=== PATIENT | female | born 1945 | race African-American/Black ===

== ENCOUNTER 2017-06-12 08:56 | Day surgery (SDC) | payer MEDICARE, BC ==
[~2017-06-12] VITALS: Ht 162.6 cm; Wt 161.0 kg
[2017-06-12] VITALS (8 sets, daily range): BP systolic 131–170; BP diastolic 66–92
--- NOTE | 2017-06-12 07:41 | Pre-Procedure Note/Attestation ---
Pre-Procedure Note/Attestation Complete Prior to Procedure Planned Procedure: left Procedure Narrative: cataract extraction with implant left eye Indications for Procedure Pre-Operative Diagnosis: cataract left eye Attestation I attest that I discussed the nature of the procedure; its benefits; risks and complications; and alternatives (and the risks and benefits of such alternatives ), prior to the procedure, with the patient (or the patient's legal credit and collections representative). I attest that, if there was a reasonable possibility of needing a blood transfusion, the patient (or the patient's legal credit and collections representative) was given the [facility] standardized written summary, pursuant to the Vikash Becky Blood Safety Act ([place] Health and Safety Code # 1645, as amended). I attest that I re-evaluated the patient just prior to the surgery and that there has been no change in the patient's H&P, except as documented below: LIBRADO MCGREGOR Jun 12, 2017 07:41
[2017-06-12] MEDS ORDERED: Akten 3.5% 1ml Btl ONE (09:05)
[2017-06-12] MEDS ORDERED: Phenylephrine 2.5% Op 2ml Soln ONE (09:06)
[2017-06-12] MEDS ORDERED: Tropicamide 1% Opth 15ml Soln ONE (09:06)
[2017-06-12] MEDS ORDERED: Flurbiprofen 0.03% Opth Sol 2.5ml ONE (09:06)
[2017-06-12] MEDS ORDERED: Vigamox Opth Soln 3ml ONE (09:06)
[2017-06-12] MEDS ORDERED: Tobradex Opth Susp 2.5ml ONE (09:06)
[2017-06-12] MEDS: Flurbiprofen 0.03% Opth Sol 2.5ml LEFT EYE SCH ×3 (09:45→10:04)
[2017-06-12] MEDS: Vigamox Opth Soln 3ml LEFT EYE SCH ×3 (09:46→10:04)
[2017-06-12] MEDS: Akten 3.5% 1ml Btl LEFT EYE SCH ×3 (09:46→10:05)
[2017-06-12] MEDS: Phenylephrine 2.5% Op 2ml Soln LEFT EYE SCH ×3 (09:46→10:05)
[2017-06-12] MEDS: Tobradex Opth Susp 2.5ml LEFT EYE SCH ×3 (09:46→10:04)
[2017-06-12] MEDS: Tropicamide 1% Opth 15ml Soln LEFT EYE SCH ×3 (09:46→10:04)
[2017-06-12] MEDS ORDERED: fentaNYL 100 mcg/2 mL IV ONE (10:00)
[2017-06-12] MEDS ORDERED: LR 1000ml ONE (10:00)
[2017-06-12] MEDS ORDERED: Midazolam 2mg/2ml Inj ONE (10:00)
[2017-06-12] MEDS ORDERED: METFORMIN HCL500 M1 ORAL (10:01)
[2017-06-12] MEDS ORDERED: METOPROLOL SUCC50 MG ORAL (10:01)
[2017-06-12] MEDS ORDERED: GABAPENTIN300 MG ORAL (10:01)
[2017-06-12] MEDS ORDERED: CELEXA20 MG ORAL (10:01)
--- NOTE | 2017-06-12 10:53 | Anethesia Preoperative Eval ---
Anesthesia Pre-op PMH/ROS General Date of Evaluation: Jun 12, 2017 Time of Evaluation: 10:10 Anesthesiologist: Samreen ASA Score: ASA 3 Mallampati Score Class I : Soft palate, uvula, fauces, pillars visible Class II: Soft palate, uvula, fauces visible Class III: Soft palate, base of uvula visible Class IV: Only hard plate visible Mallampati Classification: Class III Surgeon: kris Diagnosis: left eye cataract Surgical Procedure: left eye cataract removal with implant Anesthesia History: none Family History: no anesthesia problems Allergies: Coded Allergies: BENAZEPRIL (Verified Allergy, Unknown, 06/11/17) CLONIDINE (Verified Allergy, Unknown, 06/11/17) Medications: see eMAR Past Medical History Cardiovascular: Reports: HTN, CAD Pulmonary: Denies: asthma, COPD, MARIA ANTONIA, other Gastrointestinal/Genitourinary: Denies: GERD, CRI, ESRD, other Neurologic/Psychiatric: Reports: depression/anxiety Endocrine: Reports: DM, hypothyroidism HEENT: Reports: cataract (L) Hematology/Immune: Reports: other - left breast CA hx - surgery done Musculoskeletal/Integumentary: Reports: OA, DJD Other: obesity Anesthesia Pre-op Phys. Exam Physician Exam Last Vital Signs Date Time Temp Pulse Resp B/P (MAP) Pulse Ox O2 Delivery O2 Flow Rate FiO2 06/12/17 10:06 97.8 72 18 159/92 97 Room Air Constitutional: NAD Neurologic: CN 2-12 intact Cardiovascular: RRR Respiratory: CTA Gastrointestinal: S/NT/ND Airway Exam Mallampati Score: Class III MO: full ROM: full Teeth: missing Dentures: no upper, no lower Anesthesia Pre-op A/P Labs reviewed chart Studies Pre-op Studies: EKG - NSR Risk Assessment & Plan Assessment: AxOx3 Plan: MAC Status Change Before Surgery: No Pre-Antibiotics Given Within 1 Hr of Incision: No Ashlie Jolley CRNA Jun 12, 2017 10:53
--- NOTE | 2017-06-12 10:54 | 48 Hour Post Anesthesia Eval ---
Post Anesthesia Evaluation Procedure: left eye cataract removal with implant Date of Evaluation: Jun 12, 2017 Time of Evaluation: 11:54 Blood Pressure Systolic: 140 0: 65 Pulse Rate: 70 Respiratory Rate: 18 Temperature (Fahrenheit): 97.8 O2 Sat by Pulse Oximetry: 100 Airway: patent Nausea: No Vomiting: No Pain Intensity: 0 Hydration Status: adequate Mental Status/LOC: patient returned to baseline Follow-up care needed: patient intructions given Ashlie Jolley CRNA Jun 12, 2017 10:54
--- NOTE | 2017-06-12 10:54 | Immediate Post-Op Evaluation ---
Immediate Post-Op Evalulation Immediate Post-Op Evalulation Procedure: left eye cataract removal with implant Date of Evaluation: Jun 12, 2017 Time of Evaluation: 11:05 IV Fluids: LR 350 ml Blood Products: 0 Estimated Blood Loss: less than 2 ml Urinary Output: 0 Blood Pressure Systolic: 145 Blood Pressure Diastolic: 66 Pulse Rate: 71 Respiratory Rate: 20 O2 Sat by Pulse Oximetry: 99 Temperature (Fahrenheit): 97.8 Pain Score (1-10): 0 Nausea: No Vomiting: No Patient Status: awake, reacts, patent Hydration Status: adequate Given Within 1 Hr of Incision: Ashlie Poon CRNA Jun 12, 2017 10:54
--- NOTE | 2017-06-12 11:03 | Brief Operative Note ---
Immediate Post Operative Note Operative Note Pre-op Diagnosis: cataract left eye Procedure: phacoemulsification of cataract with implant left eye Post-op Diagnosis: same as pre-op Surgeon: librado ponce Senior Java Programmer Analyst: none Anesthesiologist: isidra flores crna Anesthesia: MAC Specimen: none Complications: none Condition: stable Fluids: none Estimated Blood Loss: minimal Drains: none Implant(s) used?: Yes LIBRADO PONCE Jun 12, 2017 11:03
[2017-06-12] MEDS ORDERED: BSS 500ml btl ONE (12:14)
[2017-06-12] MEDS ORDERED: EPINEPHrine 1mg/1ml Amp ONE (12:15)
[2017-06-12] MEDS ORDERED: Dexamethasone 4mg/ml vial ONE (12:15)
[2017-06-12] MEDS ORDERED: Lidocaine 1% MPF 10mg/ml 5ml ONE (12:15)
[2017-06-12] MEDS ORDERED: Povidone-Iodine 5% opth solution ONE (12:15)
[2017-06-12] MEDS ORDERED: BSS 15ml BTL ONE (12:16)
[2017-06-12] MEDS ORDERED: Sodium Hyaluronate 14 mg/ml 0.85ml ONE (12:16)
--- NOTE | 2017-06-12 15:15 | Operative Note - Dictated ---
DATE OF OPERATION: 06/12/2017 PREOPERATIVE DIAGNOSIS: Cataract, left eye. POSTOPERATIVE DIAGNOSIS: Cataract, left eye. PROCEDURE: Phacoemulsification of cataract left eye with placement of posterior chamber intraocular lens. SURGEON: Mark Lamar M.D. SUPERINTENDENT DISTRIBUTION: None. ANESTHESIA: MAC/topical. PATHOLOGIST: Ashlie Jolley CRNA. INDICATION FOR PROCEDURE: Hand motion vision, left eye. DESCRIPTION OF FINDINGS: A hypermature cataract, left eye. DESCRIPTION OF PROCEDURE: The patient received a topical anesthetic block consisting of 3.5% Akten eye drops. The eye was then prepped and draped in usual manner. A lid speculum was placed. An operating Zeiss microscope was positioned. The temporal corneal groove was made with the alicia blade. A SuperSharp blade made a stab incision at the 6 o'clock position. A 0.1 mL of 1% nonpreserved intracameral lidocaine was injected. Air was instilled into the anterior chamber and Vision Blue dye was used to stain the anterior capsule. The dye was irrigated with BSS. Healon was instilled into the anterior chamber and a 2.5/2.8 mm trapezoidal alicia blade was used to complete the temporal corneal wound. A cystotome was used to create an anterior capsular flap. Utrata forceps were used to complete the capsulorrhexis. BSS on a cannula was used to hydrodissect the nucleus. The lens nucleus was phacoemulsified in a phaco-fracture technique. Remaining cortical material was removed with the I/A and the posterior capsule polished with the I/A on Cap vac. Healon was instilled in a capsular bag and anterior chamber and Aguero foldable one-piece posterior chamber intraocular lens, model ZCB00, power 24.0 diopter, serial #[id number] was placed in the injector. The lens was put in the capsular bag. The I/A tip was used to remove the Healon and position the lens. The wound edge was hydrated with BSS and a blunt-tipped cannula. The wound was checked and found to be watertight. The lid speculum was removed. A drop of TobraDex and Vigamox was placed. A clear plastic shield was taped over the eye. The patient tolerated the procedure well and left the operating room in good condition. Mark Lamar M.D. ([facility] [place]: MOHSEN JOB#: [id number] CC: Toshia Dukes M.D. ([facility] [place] Fax#: [phone] [facility]
== END 2017-06-12 13:10 | disposition home or self-care (01) ==
LOC: SUR 08:56
DX: H25.22 Age-related cataract, morgagnian type, left eye (principal); I10 Essential (primary) hypertension; F32.9 Major depressive disorder, single episode, unspecified; F41.9 Anxiety disorder, unspecified; I25.10 Atherosclerotic heart disease of native coronary artery without angina pectoris; E03.9 Hypothyroidism, unspecified; M19.90 Unspecified osteoarthritis, unspecified site; Z88.8 Allergy status to other drugs, medicaments and biological substances
CPT/HCPCS: 66984; 82962; J0171; J1100; J2250; J3010; J7120; V2632; 94003; 94150

== ENCOUNTER 2017-06-26 06:24 | Day surgery (SDC) | payer MEDICARE, BC ==
[~2017-06-26] VITALS: Ht 162.6 cm; Wt 161.0 kg
[2017-06-26] VITALS (9 sets, daily range): BP systolic 134–164; BP diastolic 59–83
[~2017-06-26 06:24] MED LIST: CELEXA20 MG ORAL; GABAPENTIN300 MG ORAL; METFORMIN HCL500 M1 ORAL; METOPROLOL SUCC50 MG ORAL
[2017-06-26] MEDS ORDERED: Akten 3.5% 1ml Btl ONE ×2 (07:15→07:16)
[2017-06-26] MEDS ORDERED: Phenylephrine 2.5% Op 2ml Soln ONE (07:15)
[2017-06-26] MEDS ORDERED: Flurbiprofen 0.03% Opth Sol 2.5ml ONE (07:15)
[2017-06-26] MEDS ORDERED: Tobradex Opth Susp 2.5ml ONE (07:16)
[2017-06-26] MEDS ORDERED: Tropicamide 1% Opth 15ml Soln ONE (07:16)
[2017-06-26] MEDS: Tropicamide 1% Opth 15ml Soln RIGHT EYE SCH ×3 (07:19→07:39)
[2017-06-26] MEDS: Tobradex Opth Susp 2.5ml RIGHT EYE SCH ×3 (07:19→07:39)
[2017-06-26] MEDS: Akten 3.5% 1ml Btl RIGHT EYE SCH ×3 (07:19→07:39)
[2017-06-26] MEDS: Flurbiprofen 0.03% Opth Sol 2.5ml RIGHT EYE SCH ×3 (07:19→07:39)
[2017-06-26] MEDS: Phenylephrine 2.5% Op 2ml Soln RIGHT EYE SCH ×3 (07:19→07:39)
[2017-06-26] MEDS: Vigamox Opth Soln 3ml RIGHT EYE SCH ×3 (07:21→07:39)
[2017-06-26] MEDS ORDERED: Vigamox Opth Soln 3ml ONE (07:21)
--- NOTE | 2017-06-26 07:39 | Pre-Procedure Note/Attestation ---
Pre-Procedure Note/Attestation Complete Prior to Procedure Planned Procedure: right Procedure Narrative: cataract extraction with implant right eye Indications for Procedure Pre-Operative Diagnosis: cataract right eye Attestation I attest that I discussed the nature of the procedure; its benefits; risks and complications; and alternatives (and the risks and benefits of such alternatives ), prior to the procedure, with the patient (or the patient's legal financial representative). I attest that, if there was a reasonable possibility of needing a blood transfusion, the patient (or the patient's legal financial representative) was given the [facility] standardized written summary, pursuant to the Vikash [place] Blood Safety Act ([place] Health and Safety Code # 1645, as amended). I attest that I re-evaluated the patient just prior to the surgery and that there has been no change in the patient's H&P, except as documented below: LIBRADO MCGREGOR Jun 26, 2017 07:39
[2017-06-26] MEDS ORDERED: NS Irrig 1000ml ONE (08:00)
[2017-06-26] MEDS ORDERED: fentaNYL 100 mcg/2 mL IV ONE (08:00)
[2017-06-26] MEDS ORDERED: Midazolam 2mg/2ml Inj ONE (08:00)
[2017-06-26] MEDS ORDERED: Sterile Water Irrig 1000ml IRRIG ONE (08:00)
[2017-06-26] MEDS ORDERED: LR 1000ml ONE (08:00)
--- NOTE | 2017-06-26 08:53 | Anethesia Preoperative Eval ---
Anesthesia Pre-op PMH/ROS General Date of Evaluation: Jun 26, 2017 Time of Evaluation: 08:11 Anesthesiologist: Samreen ASA Score: ASA 3 Mallampati Score Class I : Soft palate, uvula, fauces, pillars visible Class II: Soft palate, uvula, fauces visible Class III: Soft palate, base of uvula visible Class IV: Only hard plate visible Mallampati Classification: Class III Surgeon: Willard Diagnosis: Right eye cataract Surgical Procedure: Right eye cataract removal w/ IOL Anesthesia History: none Family History: no anesthesia problems Allergies: Coded Allergies: BENAZEPRIL (Verified Allergy, Unknown, 06/11/17) CLONIDINE (Verified Allergy, Unknown, 06/11/17) Past Medical History Cardiovascular: Reports: HTN, CAD, other - high cholosterol Pulmonary: Denies: asthma, COPD, MARIA ANTONIA, other Gastrointestinal/Genitourinary: Denies: GERD, CRI, ESRD, other Neurologic/Psychiatric: Reports: depression/anxiety Endocrine: Reports: DM, hypothyroidism HEENT: Reports: cataract (L), cataract (R) Hematology/Immune: Reports: other - left breast CA - lumpectomy done Musculoskeletal/Integumentary: Reports: OA, DJD Other: obesity Anesthesia Pre-op Phys. Exam Physician Exam Last Vital Signs Date Time Temp Pulse Resp B/P (MAP) Pulse Ox O2 Delivery O2 Flow Rate FiO2 06/26/17 07:33 97.8 75 18 144/69 97 Room Air Constitutional: NAD Neurologic: CN 2-12 intact Cardiovascular: RRR Respiratory: CTA Gastrointestinal: S/NT/ND Airway Exam Mallampati Score: Class III MO: full ROM: full Teeth: intact Dentures: no upper, no lower Anesthesia Pre-op A/P Labs chart reviewed Accucheck 115 Studies Pre-op Studies: EKG - NSR 72 BPM Risk Assessment & Plan Assessment: A&O x 4 Plan: MAC Status Change Before Surgery: No Pre-Antibiotics Given Within 1 Hr of Incision: Ashlie Poon CRNA Jun 26, 2017 08:53
--- NOTE | 2017-06-26 08:55 | Brief Operative Note ---
Immediate Post Operative Note Operative Note Pre-op Diagnosis: cataract right eye Procedure: phacoemulsification of cataract with implant right eye Post-op Diagnosis: same as pre-op Surgeon: librado ponce Environmental Scientist: none Anesthesiologist: isidra flores crna Anesthesia: MAC Specimen: none Complications: none Condition: stable Fluids: none Estimated Blood Loss: none Drains: none Implant(s) used?: Yes LIBRADO PONCE Jun 26, 2017 08:55
[2017-06-26] MEDS ORDERED: Sodium Hyaluronate 14 mg/ml 0.85ml ONE (09:07)
[2017-06-26] MEDS ORDERED: BSS 15ml BTL ONE (09:07)
[2017-06-26] MEDS ORDERED: EPINEPHrine 1mg/1ml Amp ONE (09:07)
[2017-06-26] MEDS ORDERED: Povidone-Iodine 5% opth solution ONE (09:07)
[2017-06-26] MEDS ORDERED: Dexamethasone 4mg/ml vial ONE (09:07)
[2017-06-26] MEDS ORDERED: Lidocaine 1% MPF 10mg/ml 5ml ONE (09:07)
[2017-06-26] MEDS ORDERED: BSS 500ml btl ONE (09:07)
--- NOTE | 2017-06-26 09:07 | Immediate Post-Op Evaluation ---
Immediate Post-Op Evalulation Immediate Post-Op Evalulation Procedure: R eye cataract removal with exctraction and IOL Date of Evaluation: Jun 26, 2017 Time of Evaluation: 08:57 IV Fluids: LR 200ml Blood Products: 0 Estimated Blood Loss: less than 2 ml Urinary Output: 0 Blood Pressure Systolic: 164 Blood Pressure Diastolic: 73 Pulse Rate: 79 Respiratory Rate: 20 O2 Sat by Pulse Oximetry: 98 Temperature (Fahrenheit): 97.4 Pain Score (1-10): 0 Nausea: No Vomiting: No Patient Status: awake, reacts, patent Hydration Status: adequate Given Within 1 Hr of Incision: Ashlie Poon CRNA Jun 26, 2017 09:07
--- NOTE | 2017-06-26 09:09 | 48 Hour Post Anesthesia Eval ---
Post Anesthesia Evaluation Procedure: R eye cataract removal with exctraction and IOL Date of Evaluation: Jun 26, 2017 Time of Evaluation: 09:15 Blood Pressure Systolic: 160 0: 72 Pulse Rate: 77 Respiratory Rate: 22 Temperature (Fahrenheit): 97.4 O2 Sat by Pulse Oximetry: 98 Airway: patent Nausea: No Vomiting: No Pain Intensity: 0 Hydration Status: adequate Cardiopulmonary Status: WNL Mental Status/LOC: patient returned to baseline Follow-up care needed: patient intructions given Ashlie Jolley CRNA Jun 26, 2017 09:09
--- NOTE | 2017-06-26 20:31 | Operative Note - Dictated ---
DATE OF OPERATION: 06/26/2017 PREOPERATIVE DIAGNOSIS: Cataract, right eye. POSTOPERATIVE DIAGNOSIS: Cataract, right eye. PROCEDURE: Phacoemulsification of cataract, right eye, with placement of a posterior chamber intraocular lens. SURGEON: Mark Lamar M.D. EMPLOYEE RELATIONS REPRESENTATIVE: None. ANESTHESIA: MAC/topical. ANESTHESIOLOGIST: Ashlie Jolley CRNA. INDICATION FOR PROCEDURE: Hand motion vision, right eye. DESCRIPTION OF FINDINGS: Hypermature cataract, right eye. DESCRIPTION OF PROCEDURE: The patient received a topical anesthetic block consisting of 3.5% Akten eye drops. The eye was then prepped and draped in the usual manner. A lid speculum was placed. An operating Zeiss microscope was positioned. A temporal corneal groove was made with the alicia blade. A SuperSharp blade made a stab incision at the 12 o'clock position. A 0.1 mL of 1% nonpreserved intracameral lidocaine was injected. Air was instilled into the anterior chamber and VisionBlue dye was instilled to stain the anterior capsule. The dye was irrigated with BSS. Healon was instilled into the anterior chamber and a 2.5/2.8 mm trapezoidal alicia blade was used to complete the temporal corneal wound. A cystotome was used to create an anterior capsular flap. Utrata forceps were used to complete the capsulorrhexis. BSS on a cannula was used to hydrodissect the nucleus. The lens nucleus was phacoemulsified in a phaco-fracture technique. Remaining cortical material was removed with the I/A and the posterior capsule was polished with the I/A on Cap vac. Healon was instilled in a capsular bag and anterior chamber, and an Aguero foldable one-piece posterior chamber intraocular lens, model ZCB00, power 23.5 diopter, serial #[id number] was placed in the injector. The lens was put in the capsular bag. The I/A tip was used to remove the Healon and position the lens. The wound edge was hydrated with BSS and a blunt-tipped cannula. The wound was checked and found to be watertight. The lid speculum was removed, and a drop of TobraDex and Vigamox was placed. A clear plastic shield was taped over the eye. The patient tolerated the procedure well and left the operating room in good condition. Mark Lamar M.D. ([facility]) DR: MERLY JOB#: [id number] CC: ELISEO
== END 2017-06-26 12:30 | disposition home or self-care (01) ==
LOC: SUR 06:24
DX: H25.21 Age-related cataract, morgagnian type, right eye (principal); I10 Essential (primary) hypertension; I25.10 Atherosclerotic heart disease of native coronary artery without angina pectoris; E78.00 Pure hypercholesterolemia, unspecified; F32.9 Major depressive disorder, single episode, unspecified; F41.9 Anxiety disorder, unspecified; E03.9 Hypothyroidism, unspecified; E11.9 Type 2 diabetes mellitus without complications; M19.90 Unspecified osteoarthritis, unspecified site; Z88.8 Allergy status to other drugs, medicaments and biological substances; E66.01 Morbid (severe) obesity due to excess calories; Z68.44 Body mass index [BMI] 60.0-69.9, adult; M79.7 Fibromyalgia; Z85.3 Personal history of malignant neoplasm of breast; Z79.84 Long term (current) use of oral hypoglycemic drugs; Z83.3 Family history of diabetes mellitus; Z82.49 Family history of ischemic heart disease and other diseases of the circulatory system; Z84.1 Family history of disorders of kidney and ureter
CPT/HCPCS: 66984; 82962; J0171; J1100; J2250; J3010; J7120; V2632; 94003; 94150